=== PATIENT | female | born 1945 | race Caucasian/White ===

== ENCOUNTER 2021-05-21 14:48 | Inpatient (IN) | payer OTHER ==
[~2021-05-21] VITALS: Ht 152.4 cm; Wt 49.4 kg
--- NOTE | ~2021-05-21 | EMS ---
[facility] [address] [place] [address] EMS Patient Care Report Name: MONICA FERNANDEZ Room #: 170-7 ADM IN M.R.#: [id number] Admission: 05/21/21 Attend Phys: Krystle Cordon Discharge: Date of : 47 Report #: [id number] THIS REPORT FOR: //name// Report Transmitted: 05/21/2021 20:27 EMS Care Summary [facility] MED-ACT Incident [id number] @ 05/21/2021 14:17 Incident Location [address] [place] [address] Patient MONICA FERNANDEZ Female, 75 Years 1945 Patient Address [address] [place] [address] Patient Allergies No known allergies, Chief Complaint Right sided weakness Disposition Transported No Lights/Pioneer Dispatch Reason Stroke/CVA Transported To [facility] Narrative [id number] found the pt lying in bed on her right side being attended to by Adela FITZPATRICK. Report from [facility] was that the pt was last known normal last night around 20:11. Today daughter was on the phone and stated that the pt was having slurred speech. D reported that the pt was having right sided weakness and was unable to squeeze with her right hand. The pt was unable to communicate with EMS verbally, and did have weakness to the right sided education reporter. The pt would follow some basic commands. When the pt rolled to her back, EMS noted that the pt was looking up and to the left. The pt wouldn't track EMS. LFD also reported that the pt has been having some diarrhea recently, and the pt's [facility] [address] [place] [address] EMS Patient Care Report Name: MONICA FERNANDEZ Room #: 170-7 ADM IN M.R.#: [id number] Admission: 05/21/21 Attend Phys: Krystle Cordon Discharge: Date of : 47 Report #: [id number] clothes were noted to have some feces on them. There were no report of chest pain, shortness of breath, headaches, blurred vision, nausea/vomiting, abdominal pain, recent illness, or recent trauma. The pt was transported to [facility] with 2 paramedics at care. The pt condition remained unchanged en route. The pt was transferred to the CT scanner via a sheet drag from EMS cot and report given to ED RN. Initial Vitals @14:40P: 85,VT Suspected: false @14:38P: 90,R: 12, @PTAP: 96,R: 12,BP: 136/85,Glucose: 111,SpO2: 96, @14:47P: 81,R: 12,BP: 127/81,Temp: 97.6F,SpO2: 93, @14:43P: 83,R: 12,BP: 110/65,GCS: 11,SpO2: 95,Revised Trauma: 11, Assessments @14:29MENTAL:Person Oriented,Time Oriented,Place Oriented,Event Oriented,SKIN:HEENT:Head/Face: Facial Droop,Eyes: No Abnormalities,Neck/Airway: No Abnormalities,LUNG SOUNDS:General: No Abnormalities,ABDOMEN:General: No Abnormalities,PELVIS//GI:EXTREMITIES:Right Arm: Weakness,Left Arm: No Abnormalities,PULSE:NEURO:Facial Droop,Weakness Right-Sided, Impression Stroke Procedures @14:4012-Lead ECGResponse: UnchangedSucceeded@14:37Saline Lock 10cc (18 ga) Site: Antecubital-RightResponse: UnchangedSucceeded@14:42Saline Lock 10cc (20 ga) Site: Antecubital-LeftResponse: UnchangedSucceeded Timeline 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 DRIVER,BP: 136/85 M,PULSE: 96,RR: 12 R,SPO2: 96 Ox,ETCO2: ,B,PAIN: ,GCS: , 14:15,Call Received 14:15,Psap Call 14:17,Dispatched 14:18,En Route 14:27,On Scene 14:29,At Patient 14:37,Saline Lock 10cc 18 ga Site: Antecubital-Right,Response: UnchangedSucceeded, 14:38,BP: / M,PULSE: 90,RR: 12 R,SPO2: Ox,ETCO2: ,BG: ,PAIN: ,GCS: , 14:38,Depart Scene 14:40,12-Lead ECG,Response: UnchangedSucceeded, 14:40,BP: / M,PULSE: 85,RR: R,SPO2: Ox,ETCO2: ,BG: ,PAIN: ,GCS: , 14:42,Saline Lock 10cc 20 ga Site: Antecubital-Left,Response: UnchangedSucceeded, [facility] [address] [place] [address] EMS Patient Care Report Name: MONICA FERNANDEZ Room #: 170-7 ADM IN M.R.#: [id number] Admission: 05/21/21 Attend Phys: Krystle Cordon Discharge: Date of : 47 Report #: [id number] 14:43,BP: 110/65 M,PULSE: 83,RR: 12 R,SPO2: 95 Ox,ETCO2: ,BG: ,PAIN: ,GCS: 11, 14:46,At Destination 14:47,BP: 127/81 M,PULSE: 81,RR: 12 R,SPO2: 93 Ox,ETCO2: ,BG: ,PAIN: ,GCS: , 15:11,Call Closed Disclaimer v1.1 Copyright 2020 [employer] This EMS Care Summary contains data elements from the applicable legal record (which may be displayed differently). It is designed to provide pertinent information for the following purposes: continuity of care, clinical quality, and state data reporting. The complete legal record is available to ED staff and administrators of the receiving hospital in [employer]'s Patient Tracker. All data is provided "as is."
--- NOTE | ~2021-05-21 | HC ---
[facility] [place] [address] CONSULTATION Name: MONICA FERNANDEZ Room #: 170-7 ADM IN M.R.#: [id number] Admission: 05/21/21 Attend Phys: Krystle Cordon Discharge: Date of : 47 Report #: [id number] THIS REPORT FOR: cc: FAM - Family physician unknown FAM - Family physician unknown David Bruno MD ~ DATE OF SERVICE: 05/21/2021 HISTORY OF PRESENT ILLNESS: This is a 75-year-old female patient who was evaluated by me for stroke. I talked to nurse practitioners who was covering for the hospitalist and she provided some history. The patient's daughter is there, she provided some history. The patient is unable to provide any history because she has no speech output. Daughter lives in [place], but is in touch with the patient on a regular basis. The patient was functional until yesterday. Yesterday was the last time the patient was seen well. The daughter did send a text to the mother last night and she did not respond, but that is not unusual. Today, she called the mother, mother picked up the phone, but was not able to talk. She flew from [place] and brought the patient to Emergency Room. In the Emergency Room, first she was seen by Emergency Room doctor and subsequently, she was seen by hospitalist. First time, I was called about this consult by hospitalist nurse practitioner around 11:00 p.m. today. She indicated that the patient was worse. I talked to the daughter and she indicated that the patient was aphasic and right hemiplegic. The patient was sleeping and was having maybe some respiratory difficulties and SVT that time. REVIEW OF SYSTEMS: Indicated the patient had a breast cancer. She received chemotherapy. Her ejection fraction was low and she has mitral regurgitation as I understand from the daughter. She does have a history of hypertension and hypothyroidism, but still she was able to function reasonably well except for this breast cancer which she is dealing with in the last few years. 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 It appeared to be the left middle cerebral artery distribution because face and right upper extremity involved and the right lower extremity does not appear to be that much involved. It is difficult to tell how much she has deteriorated and how much she is exhausted. I talked to the nurse practitioner and my recommendation was followin. We should repeat the CT today and see if there is any hemorrhagic conversion or there is more edema compared to the last time. 2. We should give her an aspirin suppository. 3. If her blood pressure is running low and that may be aggravating her ischemia and I will talk to her and I think we should give her some fluid to bump up her blood pressure. [facility] [address] [place] [address] CONSULTATION Name: MONICA FERNANDEZ Room #: 170-7 ADM IN M.R.#: [id number] Admission: 05/21/21 Attend Phys: Krystle Cordon Discharge: Date of : 47 Report #: [id number] 4. I discussed the prognosis in this patient, especially the quality of the life do become poor with aphasia and she has made her no intubation, but to everything else and that appeared to be a very reasonable approach in this patient. She will need an echocardiogram and we will do that tomorrow. I think we will also proceed with MRI tomorrow, probably with and without contrast. All of it was discussed with nurse practitioner and the patient's daughter. Thank you very much for this referral. We will follow up this patient tomorrow. By: 2313 0009 David Bruno MD /nt
[2021-05-21 14:51] VITALS: BP 119/79
--- NOTE | 2021-05-21 14:55 | NUR ---
THIS RN WITH PT AT CT. PT REMAINED STABLE IN CT AND BACK TO ED ROOM 07 PT BACK TO ROOM ED [address] AND CTA. PER EMS PT STATED LAST KNOWN WELL WAS LAST NIGHT AROUND 2000 PER DAUGHTER ON PHONE. PT STATED TO LIVE AT HOME AND THERE IS NO KNOWN HX OF PRIOR STROKE. PER EMS PT STATED TO HAVE RIGHT SIDED WEAKNESS AND HAS BEEN NONVERBAL FOR THEM. PT BG 120. PT HAS BILATERAL AC ACCESS. PT HAS NO OUTWARD INJURIES NOTED. PT VSS ON RA. PT DOES APPEAR TO BE ALERT. PT WILL SQUEEZE THIS RN'S HAND WITH HER LEFT HAND WHEN PROMPTED WITH QUESTIONS. PER ASSESSMENT PT IS STATED TO HAVE HAD COVID-19 VACCINATION, PT DENIES BEING AROUND ANYONE ILL, PT DENIES ANY PAIN, PT DENIES SOB ALTHOUGH OXYGEN WAS MAINTAINING AT 89-90% ON RA SO PT WAS PLACED 2L NC, 16F TURPIN PLACED WITH CLEAR YELLOW OUPUT NO SHIVAM ISSUES NOTED. UPON NIH ASSESSMENT PT NIH AT THIS TIME IS 19; PLEASE REFER TO NIH SCALE. PT VSS ON 2L NC, PT DOES NOT INDICATE ANY CONCERNS AT THIS TIME. PT COVERERD WITH WARM BLANKETS, CALL LIGHT IS WITHIN REACH AND ENCOURAGED TO USE, PT SQUEEZES THIS RN'S HAND WHEN ASKED IF SHE IS AWARE OF WHAT IS GOING ON. PT SQUEEZES THIS RN'S HAND STATING SHE DOES NOT HAVE ANY FURTHER QUESTIONS. THIS IS A RUNNING NOTE AND LAST DOCUMENTED AT 1820, FAMILY MEMBER AT BEDSIDE AT THIS TIME
--- NOTE | 2021-05-21 15:19 | NUR ---
DTR- ABY [phone] (OUT OF TOWN) NEIGHBOR- TIMMY BENITO [phone]
[2021-05-21 15:27] LABS: ABSOLUTE NEUTROPHILS 4.8 thou/uL (1.4-8.2); EOSINOPHILS 0.3 % (0.0-3.0); HEMATOCRIT 33.6 % (37.0-47.0); HEMOGLOBIN 11.4 gm/dL (12.0-15.0); LYMPHOCYTES 23.6 % (24.0-44.0); MCH 30.1 pg (26.0-34.0); MCHC 33.8 g/dL (28.0-37.0); MCV 89.1 fL (80.0-100.0); MONOCYTES 10.2 % (1.0-8.0); PLATELET COUNT 358 thou/uL (150-400); POLYS 64.9 % (36.0-66.0); RBC 3.77 mil/uL (4.20-5.00); RDW 14.9 % (10.5-14.5); WBC 7.4 thou/uL (4.0-11.0)
[2021-05-21 15:44] LABS: CALCIUM 8.2 mg/dL (8.5-10.1); POTASSIUM 3.5 mmol/L (3.5-5.1)
[2021-05-21 15:46] LABS: APTT 23.1 Seconds (24.5-32.8); INR 1.03; PROTIME 11.2 Seconds (10.5-12.1)
[2021-05-21 15:54] LABS: ALBUMIN 2.7 g/dL (3.4-5.0); TOTAL BILIRUBIN 0.6 mg/dL (0.2-1.0); TROPONIN-I 0.17 ng/mL (<0.06)
[2021-05-21 17:34] LABS: FOLIC ACID 7.1 ng/mL (8.6-58.9)
--- NOTE | 2021-05-21 19:07 | NUR ---
REPORT GIVEN TO TONI GRAY AT THIS TIME
[2021-05-21 22:19] VITALS: BP 106/64
[2021-05-22 00:17] LABS: CALCIUM 8.7 mg/dL (8.5-10.1); CREATININE 1.1 mg/dL (0.6-1.0); POTASSIUM 3.2 mmol/L (3.5-5.1)
[2021-05-22 00:43] LABS: BE(vivo) 6.5 mmol/L (-2 to +3); HCO3 31.1 mmol/L (22.0-26.0); PCO2 44.3 mmHg (35.0-45.0); PO2 101.5 mmHg (80.0-100.0); pH 7.464 (7.360-7.450); sO2 97.9 % (92.0-98.0)
[2021-05-22 05:10] LABS: ABSOLUTE NEUTROPHILS 3.6 thou/uL (1.4-8.2); BASOPHILS 0.4 % (0.0-2.0); EOSINOPHILS 0.4 % (0.0-3.0); HEMOGLOBIN 11.5 gm/dL (12.0-15.0); LYMPHOCYTES 30.1 % (24.0-44.0); MCH 30.4 pg (26.0-34.0); MCV 89.4 fL (80.0-100.0); MONOCYTES 9.7 % (1.0-8.0); PLATELET COUNT 331 thou/uL (150-400); POLYS 59.4 % (36.0-66.0); RDW 14.8 % (10.5-14.5); WBC 6.1 thou/uL (4.0-11.0)
[2021-05-22 05:32] LABS: CALCIUM 8.3 mg/dL (8.5-10.1); CREATININE 0.9 mg/dL (0.6-1.0); MAGNESIUM 1.9 mg/dL (1.8-2.4); POTASSIUM 3.3 mmol/L (3.5-5.1)
[2021-05-22 07:21] LABS: CHOLESTEROL 152 mg/dL (<200); HDL CHOLESTEROL 44 mg/dL (>40); LDL CHOLESTEROL 93 mg/dL (<100); TC:HDL 3.5 Ratio (Not establshd); TRIGLYCERIDE 78 mg/dL (<150); VLDL 16 mg/dL (<40)
--- NOTE | 2021-05-22 09:01 | NUR ---
SPOKE TO BO JERRY (CARDIOLOGY) AND WAS NOTIFIED OK TO GIVE PATIENT METOPROLOL AND AMNIODARONE WITH CURRENT BLOOD PRESSURE TRENDS.
--- NOTE | 2021-05-22 09:50 | EKG ---
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: PK : 1945 Requested By: Reji Villeda Order Number: [id number] MD: Scot Conrad Measurements Intervals [place] Rate: 77 P: 89 IN: 176 QRS: 51 QRSD: 129 T: 117 QT: 457 QTc: 518 Interpretive Statements Sinus rhythm Premature ventricular complexes LVH with secondary repolarization abnormality Prolonged QT interval No previous ECG available for comparison Electronically Signed On 05-22-2021 9:49:57 CDT by Scot Conrad [email or web address] <ELECTRONICALLY SIGNED> By: Scot Conrad MD, [facility] 05/22/21 0949 1544 1544 Scot Conrad MD, FACC /EPI
--- NOTE | 2021-05-22 09:54 | EKG ---
[place] [address] [facility] [place] [address] ELECTROCARDIOGRAM REPORT Name: MONICA FERNNADEZ Room #: 170-7 ADM IN M.R.#: [id number] Admission: 05/21/21 Attend Phys: Krystle Cordon Discharge: Date of : 47 Report #: [id number] [facility] ED Test Date: 2021-05-21 Test Time: 22:07:29 Pat Name: MONICA FERNANDEZ Department: Room: 170 Gender: F Tack Picker: drea : 1945 Requested By: Ashleigh Avalos Order Number: [id number] MD: Scot Conrad Measurements Intervals [place] Rate: 80 P: 96 [place]: 160 QRS: 59 QRSD: 102 T: 119 QT: 410 QTc: 473 Interpretive Statements Sinus rhythm Atrial premature complexes LVH with secondary repolarization abnormality Compared to ECG 05/21/2021 15:44:12 Premature ventricular complexes are no longer present present Electronically Signed On 05-22-2021 9:54:41 CDT by Scot Conrad [email or web address] <ELECTRONICALLY SIGNED> By: Scot Conrad MD, [facility] 05/22/21 0954 06 06 Scot Conrad MD, [facility] /EPI
--- NOTE | 2021-05-22 10:51 | NUR ---
DAUGHTER (ABY AGUERO) [phone]
--- NOTE | 2021-05-22 12:37 | 2DMMODE ---
[facility] [place] [address] 2 D/M-MODE ECHOCARDIOGRAM Name: MONICA FERNANDEZ Room #: 170-7 ADM IN M.R.#: [id number] Admission: 05/21/21 Attend Phys: Krystle Cordon Discharge: Date of : 47 Report #: [id number] THIS REPORT FOR: cc: FAM - Family physician unknown FAM - Family physician unknown Scot Conrad MD [facility] ~ APPROVED REPORT Study performed: 05/22/2021 11:24:17 EXAM: Comprehensive 2D, Doppler, and color-flow Echocardiogram Patient Location: ER Room #: 7 Status: routine BSA: 1.54 HR: 67 bpm BP: 125/86 mmHg Rhythm: NSR Other Information Study Quality: Adequate Indications CVA/TIA Elevated Troponin Hypertension/HDD 2D Dimensions IVSd: 9.45 (7-11mm) LVOT Diam: 18.35 (18-24mm) LVDd: 56.20 mm PWd: 10.26 (7-11mm) Ascending Ao: 33.15 (22-36mm) LVDs: 50.47 (25-40mm) Left Atrium: 34.13 (27-40mm) Aortic Root: 31.36 mm Volumes Left Atrial Volume (Systole) Single Plane 4CH: 16.91 mL Single Plane 2CH: 65.56 mL Biplane LA Volume: 52.00 mL LA ESV Index: 34.00 mL/m2 Aortic Valve AoV Peak [place].: 0.83 m/s AO Peak Gr.: 2.77 mmHg LVOT Max P.72 mmHg LVOT Max V: 0.42 m/s [facility] [place] [address] [place] [address] 2 D/M-MODE ECHOCARDIOGRAM Name: MONICA FERNANDEZ Room #: 170-7 ADM IN ..#: [id number] Admission: 05/21/21 Attend Phys: Krystle Riddle Discharge: Date of : 47 Report #: [id number] LAMAR Vmax: 1.35 cm2 Mitral Valve E/A Ratio: 2.0 MV Decel. Time: 113.58 ms MV E Max Kingston.: 0.98 m/s MV A Kingston.: 0.48 m/s MV PHT: 32.94 ms IVRT: 78.43 ms Pulmonary Valve PV Peak [place].: 0.56 m/s PV Peak Gr.: 1.25 mmHg CO End Vmax: 1.22 m/s Tricuspid Valve TR Peak [place].: 2.94 m/s RAP Estimate: 15.00 mmHg TR Peak Gr.: 34.63 mmHg RVSP: 50.00 mmHg Left Ventricle Left ventricle is dilated. There is global hypokinesis of the left ventricle. There is normal left ventricular wall thickness. Left ventricular systolic function is severely decreased. LVEF 25%. Severe diastolic dysfunction Right Ventricle The right ventricle is normal size. Right ventricle is moderately hypokinetic. Atria Left atrium is borderline dilated. The right atrium size is normal. Aortic Valve The aortic valve is normal in structure. No aortic regurgitation is present. There is no aortic valvular stenosis. Mitral Valve The mitral valve is normal in structure. Moderate to severe mitral regurgitation No evidence of mitral valve stenosis. Tricuspid Valve The tricuspid valve is normal in structure. Mild to moderate tricuspid regurgitation. Pulmonary artery pressure of 40 mmHg. Pulmonic Valve [facility] [place] [address] [place] [address] 2 D/M-MODE ECHOCARDIOGRAM Name: MONICA FERNANDEZ Room #: 170-7 ADM IN M.R.#: [id number] Admission: 05/21/21 Attend Phys: Krystle Riddle Discharge: Date of : 47 Report #: [id number] The pulmonary valve is normal in structure. Trace to mild pulmonic regurgitation. Great Vessels The aortic root is normal in size. IVC is dilated and collapses <50% with inspiration. Pericardium There is no pericardial effusion. There is no pleural effusion. <Conclusion> Left ventricular systolic function is severely decreased. There is global hypokinesis of the left ventricle. LVEF 25%. Severe diastolic dysfunction Left atrium is borderline dilated. The aortic valve is normal in structure. No aortic regurgitation or stenosis. The mitral valve is normal in structure. Moderate to severe mitral regurgitation Pulmonary artery pressure of 40 mmHg. There is no pericardial effusion. <ELECTRONICALLY SIGNED> By: Scot Conrad MD, [facility] 05/22/21 1237 1237 1237 Scot Conrad MD, [facility] /INF
[2021-05-22 14:17] VITALS: BP 96/62
[2021-05-22 14:41] VITALS: BP 110/71
--- NOTE | 2021-05-22 14:45 | NUR ---
VERIFIED ROOM ASSIGNMENT AND LEVEL OF CARE STATUS WITH CENTER REP, WAS NO TIFIED THAT ROOM [address] YOUNG.
[2021-05-22 15:15] VITALS: BP 120/78
--- NOTE | 2021-05-22 20:19 | NUR ---
ADMITTED THIS PATIENT FROM THE EMERGENCY AT 1505H, ON NASAL CANNULA AT 6LPM, MAITAING SATURATION MORE THAN 95%.NOT IN PAIN OR DISTRESS.PATIENT HAS EXPRESSIVE APHASIA, ADMISSION INFORMATIONS WERE GIVEN BY HER BESTFRIEND WHO CAME WITH HER FROM THE EMERGENCY.CONFIRMED WITH DR. MACEDO PRIOR TO GIVING THE DUE AMIODARONE AND IV METOPROLOL SINCE THE LAST BLOOD PRESSURE WAS 116/79 AND HR WAS 76 AND PATIENT IS ALSO ON SINUS RYTHM, PER DR. MACEDO BOTH STILL NEEDS TO BE GIVEN.INFORMED DR. FERGUSON THAT PER MANAGEMENT CONSULTANT, PATIENT NEEDS TO BE SEDATED PRIOR TO MRI SINCE PATIENT IS HAVING CLAUSTROPHOBIA, PER DR. FERGUSON, WE CAN JUST CANCEL THE MRI IT IS NOT NEEDED NOW.ALL NEEDS ATTENDED.HANDED OVER TO REAL ESTATE DEVELOPER FOR FURTHER CARE.
[2021-05-22 21:06] VITALS: BP 110/78
[2021-05-23] VITALS (7 sets, daily range): BP systolic 111–1221; BP diastolic 76–85
[2021-05-23 05:01] LABS: ALBUMIN 2.8 g/dL (3.4-5.0); CALCIUM 8.2 mg/dL (8.5-10.1); PHOSPHORUS 3.1 mg/dL (2.6-4.7); POTASSIUM 4.1 mmol/L (3.5-5.1); TROPONIN-I 0.21 ng/mL (<0.06)
--- NOTE | 2021-05-23 07:52 | NUR ---
PT BEEN RESTING IN NO ACUTE DISTRESS.PT S/P CVA W/RIGHT SIDED WEAKNESS AND EXPRESSIVE APHASIA.PT FOLLOWS COMMANDS APPROPRIATELY WHEN PROMOTED AND USES GESTURE/NODDING AND SQUEEZING HAND.PT HAD ACUTE EPISODES OF SHORTNESS OF BREATH THAT WAS RELIEF BY NEB TX AND O2 PNC.CURRENTLY AT 3LITERS PNC,SATS ADEQUATE.LCLR,NO WHEEZING OR COUGH.NO EDEMA.SHE ALOS COMPLAINED OF NAUSEA W/O VOMITING THAT WAS CONTROLLED WITH ZOFRAN PER ORDERS. TURPIN DD,URINE OUTPUT INADEQUATE< 200ML THIS SHIFT,BRASSWIND INSTRUMENT REPAIRER WAS NOTIFIED,250CC OF NS BOLUS WAS GIVEN W/O IMPROVEMENT.NPO PENDING ST EVALUATION.MRI WAS CANCELLED PER DAY RN REPORT.ASSESSMENT COMPLETED DOCUMENTED.WILL CONT TO MONITOR.SHAGGY,PT DAUGHTER WILL BE HERE TODAY.
--- NOTE | 2021-05-23 10:30 | EKG ---
[address] [place] [address] ELECTROCARDIOGRAM REPORT Name: MONICA FERNANDEZ Room #: 210-P ADM IN M.R.#: [id number] Admission: 05/21/21 Attend Phys: Krystle Cordon Discharge: Date of : 47 Report #: [id number] [facility] ED Test Date: 2021-05-22 Test Time: 07:11:23 Pat Name: MONICA FERNANDEZ Department: Room: 210 Gender: F Trench Trimmer Fine: drea : 1945 Requested By: Krystle Cordon Order Number: [id number] MD: Scot Conrad Measurements Intervals [place] Rate: 123 P: DC: QRS: 47 QRSD: 103 T: 73 QT: 398 QTc: 570 Interpretive Statements Supraventricular tachycardia Right ventricular conduction delay Prolonged QT interval Compared to ECG 05/22/2021 07:06:30 Premature ventricular complexes no longer present Electronically Signed On 05-23-2021 10:30:29 CDT by Scot Conrad [email or web address] <ELECTRONICALLY SIGNED> By: Scot Conrad MD, [facility] 05/23/21 1030 0 Scot Conrad MD, FACC /EPI
--- NOTE | 2021-05-23 10:30 | EKG ---
[address] [place] [address] ELECTROCARDIOGRAM REPORT Name: MONICA FERNANDEZ Room #: 210-P ADM IN M.R.#: [id number] Admission: 05/21/21 Attend Phys: Krystle Cordon Discharge: Date of : 47 Report #: [id number] [facility] ED Test Date: 2021-05-22 Test Time: 07:06:30 Pat Name: MONICA FERNANDEZ Department: Room: 210 Gender: F Console Manager: drea : 1945 Requested By: Krystle Cordon Order Number: [id number] MD: Scot Conrad Measurements Intervals [place] Rate: 121 P: 0 [place]: 228 QRS: 66 QRSD: 99 T: 83 QT: 380 QTc: 540 Interpretive Statements Supraventricular tachycardia Occasional premature ventricular complexes Compared to ECG 05/21/2021 22:07:29 Ventricular premature complex(es) now present PSVT has replaced sinus rhythm Electronically Signed On 05-23-2021 10:30:05 CDT by Scot Conrad [email or web address] <ELECTRONICALLY SIGNED> By: Scot Conrad MD, [facility] 05/23/21 1030 5 5 Scot Conrad MD, [facility] /EPI
--- NOTE | 2021-05-23 10:33 | EKG ---
[address] [address] [place] [address] ELECTROCARDIOGRAM REPORT Name: MONICA FERNANDEZ Room #: 210-P ADM IN M.R.#: [id number] Admission: 05/21/21 Attend Phys: Krystle Cordon Discharge: Date of : 47 Report #: [id number] [facility] ED Test Date: 2021-05-22 Test Time: 07:12:50 Pat Name: MONICA FERNANDEZ Department: Room: 210 Gender: F Document Restorer: drea : 1945 Requested By: Krystle Cordon Order Number: [id number] MD: Scot Conrad Measurements Intervals [place] Rate: 71 P: 85 [place]: 169 QRS: 33 QRSD: 102 T: 74 QT: 540 QTc: 587 Interpretive Statements Sinus rhythm Occasional atrial premature complexes Probable left ventricular hypertrophy Nonspecific T abnormalities, lateral leads Prolonged QT interval Compared to ECG 05/22/2021 07:11:23 PSVT is no longer present Electronically Signed On 05-23-2021 10:33:29 CDT by Scot Conrad [email or web address] <ELECTRONICALLY SIGNED> By: Scot Conrad MD, [facility] 05/23/21 1033 1 1 Scot Conrad MD, [facility] /EPI
--- NOTE | 2021-05-23 10:35 | EKG ---
[facility] [place] [address] ELECTROCARDIOGRAM REPORT Name: MONICA FERNANDEZ Room #: 210-P ADM IN M.R.#: [id number] Admission: 05/21/21 Attend Phys: Krystle Cordon Discharge: Date of : 47 Report #: [id number] [facility] ED Test Date: 2021-05-22 Test Time: 07:14:16 Pat Name: MONICA FERNANDEZ Department: Room: 210 Gender: F Agency Trainer: drea : 1945 Requested By: Krystle Cordon Order Number: [id number] MD: Scot Conrad Measurements Intervals [place] Rate: 118 P: 252 LA: 188 QRS: 69 QRSD: 97 T: 84 QT: 361 QTc: 506 Interpretive Statements Supraventricular tachycardia Consider left atrial enlargement RSR' in V1 or V2, right VCD Probable left ventricular hypertrophy Prolonged QT interval Compared to ECG 05/22/2021 07:12:50 PSVT has replaced sinus rhythm Electronically Signed On 05-23-2021 10:35:12 CDT by Scot Conrad [email or web address] <ELECTRONICALLY SIGNED> By: Scot Conrad MD, [facility] 05/23/21 1035 3 Scot Conrad MD, [facility] /EPI
--- NOTE | 2021-05-23 10:54 | EKG ---
[address] [address] [place] [address] ELECTROCARDIOGRAM REPORT Name: MONICA FERNANDEZ Room #: 210-P ADM IN M.R.#: [id number] Admission: 05/21/21 Attend Phys: Krystle Cordon Discharge: Date of : 47 Report #: [id number] [facility] Test Date: 2021-05-23 Test Time: 08:23:00 Pat Name: MONICA FERNANDEZ Department: Room: 210 P Gender: F Missile Mechanic: DIANA : 1945 Requested By: Scot Conrad Order Number: [id number] MD: Scot Conrad Measurements Intervals [place] Rate: 73 P: 82 [place]: 163 QRS: 53 QRSD: 75 T: 61 QT: 451 QTc: 497 Interpretive Statements Sinus rhythm Paired ventricular premature complexes RSR' in V1 or V2, probably normal variant Borderline T wave abnormalities Borderline prolonged QT interval Compared to ECG 05/22/2021 07:14:16 Ventricular premature complex(es) now present Supraventricular tachycardia is no longer present Electronically Signed On 05-23-2021 10:54:29 CDT by Scot Conrad [email or web address] <ELECTRONICALLY SIGNED> By: Scot Conrad MD, [facility] 05/23/21 1054 0823 0823 Scot Conrad MD, [facility] /EPI
[2021-05-24 03:07] VITALS: BP 122/76
[2021-05-24 03:30] LABS: ALBUMIN 2.8 g/dL (3.4-5.0); CALCIUM 7.9 mg/dL (8.5-10.1); PHOSPHORUS 2.6 mg/dL (2.5-4.9)
[2021-05-24 07:26] VITALS: BP 114/63
--- NOTE | 2021-05-24 07:49 | NUR ---
ASSUMED CARE OF PT AT 1900, PT ALERT AND NON VERBAL, DAUGHER AT BEDSIDE. ASSESSMENT COMPLETED NOTED. NIH CHARTED NOTED. PT REMAINS ON 3L NC, AND HAS BOUTS OF ANXIETY THAT IS RESOLVED WITH MEDICATION. PT WAS ABLE TO SLEEP THE MAJORITY OF THE NOC. PT K+ 3.0, POTASSIUM PROTOCOL INITIATED. WILL CONTINUE TO WORK TOWARD POC
[2021-05-24 11:38] VITALS: BP 112/72
[2021-05-24 17:06] VITALS: BP 110/62
[2021-05-24 20:00] VITALS: BP 106/68
[2021-05-25 04:00] VITALS: BP 106/66
[2021-05-25 09:30] VITALS: BP 123/78
--- NOTE | 2021-05-25 09:37 | NUR ---
Recommend continue ordered tube feed of jevity 1.5 at goal of 35ml/hr with 200ml water flush every 6hr. Consider dc IVF. Folate is needing replacement.
[2021-05-25 12:50] VITALS: BP 95/49
[2021-05-25 13:19] LABS: CALCIUM 8.5 mg/dL (8.5-10.1); POTASSIUM 3.9 mmol/L (3.5-5.1)
--- NOTE | 2021-05-25 15:18 | NUR ---
ASSESSMENT: CM REVIEWED CHART. PT WAS ADMITTED DUE TO [facility]. PT WAS TOTALLY INDEPENDENT PRIOR TO ADMISSION. PT LIVED AT HOME BY HERSELF AND WAS PLANNING ON MOVING THIS COMING WEEK TO [place] TO LIVE WITH HER DAUGHTER AND HER FAMILY (GRANDCHILDREN) BUT ENDED UP IN THE HOSPITAL. PT WAS INDEPENDENT WITH ADLS AND AMBULATION PRIOR TO ADMISSION AND DID NOT REQUIRE ANY DME. DAUGHTER STATING THAT THEY PREFER THAT PATIENT GOES TO [facility] INPATIENT REH[facility]IL[facility]ATION. CM FAXED REFERRAL AND SPOKE WITH MONICA IN ADMISSIONS WHO IS COVERING FOR [facility] AND REPORTS SHE IS STILL REVIEWING REFERRAL. CM UPDATED PATIENTS DAUGHTER ABY. MARGARET REPORTS PLANS ARE FOR PATIENT TO GO TO ACUTE REHAB AND THEM MOVE TO [place] WITH THEM SO THEY ARE THERE TO SUPPORT HER. CM WILL AWAIT FURTHER INPUT FROM [facility].
[2021-05-25 16:00] VITALS: BP 102/66
[2021-05-25 20:00] VITALS: BP 115/72
[2021-05-26 03:57] LABS: HEMATOCRIT 35.9 % (37.0-47.0); HEMOGLOBIN 11.9 gm/dL (12.0-15.0); MCH 29.7 pg (26.0-34.0); MCHC 33.3 g/dL (28.0-37.0); MCV 89.2 fL (80.0-100.0); RBC 4.02 mil/uL (4.20-5.00); RDW 15.2 % (10.5-14.5); WBC 14.4 thou/uL (4.0-11.0)
[2021-05-26 04:00] VITALS: BP 125/61
[2021-05-26 04:30] LABS: CALCIUM 8.5 mg/dL (8.5-10.1); CREATININE 0.9 mg/dL (0.6-1.0); POTASSIUM 4.4 mmol/L (3.5-5.1)
[2021-05-26 08:00] VITALS: BP 118/76
[2021-05-26 10:25] LABS: URINE BLOOD 3+ (Negative); URINE CLARITY CLOUDY; URINE COLOR YELLOW; URINE GLUCOSE-RANDOM* NEGATIVE (Negative); URINE KETONES TRACE (Negative); URINE PROTEIN (DIPSTICK) 1+ (Negative); URINE SPECIFIC GRAVITY 1.015 (1.005-1.035)
[2021-05-26 10:33] LABS: ICTOTEST (BILI CONFIRMATORY) Negative (Negative); URINE BILIRUBIN NEGATIVE (Negative); URINE LEUKOCYTES-REFLEX 2+ (Negative); URINE NITRITE-REFLEX POSITIVE (Negative)
[2021-05-26 11:10] LABS: AMORPHOUS URATES Few /LPF (None Seen); BACTERIA-REFLEX >30 Many /HPF (None Seen); CASTS None Seen /LPF (None Seen); SQUAMOUS None Seen /LPF (0-3); URINE WBC-REFLEX >25 Many /HPF (0-5)
[2021-05-26 12:00] VITALS: BP 87/50
--- NOTE | 2021-05-26 14:28 | NUR ---
ON-GOING ASSESSMENT: CM REVIEWED CHART AND SPOKE WITH ATTENDING. PT WAS FEBRILE THIS AM AND CONCERNS FOR POSSIBLE ASPIRATION. VIDEO SWALLOW WAS ORDERED FOR PATIENT AND RECOMMENDING POSSIBLE PEG PLACEMENT. GI HAS BEEN CONSULTED TO EVAL FOR PEG TUBE. CM SPOKE WITH PATIENTS DAUGHTER WHO WAS IN THE WAITING ROOM TODAY TO DISCUSS. SHE REPORTS SHE WILL SEE WHAT IS RECOMMENDED BUT THINKS PT WOULD BENEFIT FROM PEG DUE TO NUTIRITIONAL SUPPORT IT WOULD PROVIDE AND STILL WANTS PATIENT TO GO TO [facility] HER TOP CHOICE. PT DOES NOT WANT PT TO GO TO [facility]N ACUTE REHAB. CM UPDATED [facility] SOUZA FROM [facility] AND NOTIFIED HER PT MAY NEED PEG PLACEMENT AND AWAITING GI EVAL. CM WILL CONTINUE TO FOLLOW TO ASSIST NEEDED.
[2021-05-26 16:00] VITALS: BP 102/58
[2021-05-26 20:12] VITALS: BP 99/66
[2021-05-27 00:51] VITALS: BP 98/60
[2021-05-27 03:27] LABS: HEMATOCRIT 30.9 % (37.0-47.0); HEMOGLOBIN 10.4 gm/dL (12.0-15.0); MCH 30.2 pg (26.0-34.0); MCHC 33.6 g/dL (28.0-37.0); MCV 89.7 fL (80.0-100.0); RBC 3.44 mil/uL (4.20-5.00); RDW 15.6 % (10.5-14.5)
[2021-05-27 04:04] LABS: CALCIUM 7.8 mg/dL (8.5-10.1); CREATININE 0.8 mg/dL (0.6-1.0)
[2021-05-27 04:34] VITALS: BP 92/49
--- NOTE | 2021-05-27 07:48 | NUR ---
ASSUMED CARE OF PT AT 1900, PT IS ALERT AND NON VERBAL, BUT UNDERSTANDS ALL COMMANDS. PT REMAINS ON 2L NC TOLERATING WELL, TURPIN IN PLACE AND PATENT. DOBHOFF AT 60 WITH TF RUNNING ORDERED. ASSESSMENT COMPLETED NOTED, PT DENIES PAIN. AT 0400 BP WAS 92/49 WITH MAP OF 60, [employer]IC NOTIFIED, ORDERS RECIEVED AND INITIATED. WILL CONTINUE TO WORK TOWARDS PT'S POC.
[2021-05-27 07:50] VITALS: BP 107/63
[2021-05-27 12:00] VITALS: BP 95/56
--- NOTE | 2021-05-27 15:18 | NUR ---
ON-GOING ASSESSMENT: CM REVIEWED CHART. PLANS ARE FOR PATIENT TO GET PEG TUBE TOMORROW. ONCE PT IS ABLE TO START TUBE FEEDS SHE MUST BE AT HER GOAL RATE AND TOLERATING BEFORE [facility] CAN ACCEPT HER. ONCE SHE IS TOLERATING TUBE FEEDS AT GOAL RATE THEY CAN MEDICALLY ACCEPT. CM SENT UPDATED CLINICAL AND NEGATIVE COVID TEST TO [facility]MISS[facility] ABD DISCUSSED. GRAZYNA ALSO SPOKE WITH PATIENTS DAUGHTER ABY TO UPDATE. GRAZYNA WILL CONTINUE TO FOLLOW.
--- NOTE | 2021-05-27 16:52 | NUR ---
FAXED CLINICAL UPDATES AND NEGATIVE COVID RESULT (05/21/21) TO [facility]. WILL CONFIRM WITH [facility] THAT THEY HAVE RECEIVED. [facility] P [phone]; FAX [phone]
[2021-05-27 17:18] VITALS: BP 97/51
--- NOTE | 2021-05-27 19:23 | NUR ---
ASSUMED CARE SHIFT CHANGE. ASSESSMENTS CHARTED.VSS. PM BP MED HELD PER PARAMETER ORDERS. PT ALERT. ANSWERS YES/NO QUESTIONS. UNABLE TO SPEAK. DAUGHTER AND SON AT BEDSIDE THROUGHOUT SHIFT. TUBE FEEDS CONTINUE. PUREED DIET PER ORDERS, PT JON WELL. UP WITH PHYS THERAPY AND OT JON WELL. TURNS. PT PROGRESSING WELL TOWARD GOALS. PLAN FOR REHAB ONCE MEDICALLY STABLE. DENIES PAIN/CP/SOB. REPORT PASSED TO SALMA RN.
[2021-05-27 20:15] VITALS: BP 108/67; BP 119/85
[2021-05-28 00:55] VITALS: BP 95/53
[2021-05-28 02:03] VITALS: BP 95/53
[2021-05-28 04:45] VITALS: BP 104/55
--- NOTE | 2021-05-28 07:47 | NUR ---
assumed pt care at 1900, pt is awake, daughter at bedside, pt remains non-verbal, able to follow commands, nodes to yes or no questions, pt in good spirits tonight, assessmensts as charted, meds given as per dec, remains npo for peg tube placement today, no needs at this time, passed on report to day nurse
[2021-05-28 07:50] VITALS: BP 103/63; BP 125/82
[2021-05-28 11:35] VITALS: BP 99/65
--- NOTE | 2021-05-28 12:40 | NUR ---
Patient's daughter at bedside at the time patient picked up to go to GI lab for PEG placement. Patient NPO since midnight. VSS.
--- NOTE | 2021-05-28 16:35 | NUR ---
ON-GOING ASSESSMENT: CM REVIEWED CHART. PT IS TO HAVE PEG TUBE PLACED TODAY. CM FAXED UPDATED NOTES TO [facility]. CM WILL CONTINUE TO FOLLOW TO ASSIST NEEDED. [facility] CAN ACCEPT PATIENT ONCE SHE IS TOLERATING HER GOAL FEEDS.
[2021-05-28 18:25] VITALS: BP 103/67
--- NOTE | 2021-05-28 18:42 | NUR ---
Patient returned from PEG placement, alert and following commands. VSS. Family at bedside. Updated on patient condition. D5W restarted. Patient denies pain at this time
[2021-05-29 00:32] VITALS: BP 100/60
[2021-05-29 04:47] VITALS: BP 101/62
--- NOTE | 2021-05-29 05:24 | NUR ---
assumed pt care at 1900, awake, alert, follow commands, c/o pain, tyl given x2 with partial relief, sr on tele, meds given as per dec, repositioned as needed, frequent rounding, calls appropriately for needs, peg tube site intact, will pass on report
[2021-05-29 08:10] VITALS: BP 97/63
--- NOTE | 2021-05-29 11:04 | NUR ---
Recommend jevity 1.5 at 35ml/hr and 200ml water flushes every 6hr. Folic acid needs replacement
[2021-05-29 11:25] VITALS: BP 104/65
--- NOTE | 2021-05-29 13:53 | NUR ---
VAT CONSULTED FOR PIV PLACEMENT. ATTEMPT LEFT FOREARM PIV, X1, WITHOUT SUCCESS. ASSESSED BILATERAL ARMS WITH US. VESSELS EXTREMELY SMALL, INCLUDING LEFT UPPER ARM. LEFT UPPER BRACHIAL ML PLACED, TRIMMED 15CM WITH 0CM EXTERNAL, PER VASCULAR ACCESS POLICY. FLUSHES BRISKLY AND RETURNS BLOOD. RELEASED FOR USE.
--- NOTE | 2021-05-29 16:20 | NUR ---
ON-GOING ASSESSMENT: CM REVIEWED CHART AND SPOKE WITH ATTENDING. PT IS SLOWLY PROGRESSING TOWARDS DISCHARGE GOALS. PT HAD PEG TUBE PLACED LATE YESTERDAY. CM FAXED UDPATED CLINICAL FROM PEG PLACEMENT WELL UPDATED PROGRESS NOTES /[employer] NOTES/LABS. GRAZYNA SPOKE WITH HARLEY OLEA AT [facility] WHO REPORTS THEY CAN ONLY ACCEPT PATIENT IF PATIENT IS ABLE TO TOLERATE TUBE FEEDS AT HER GOAL. CM NOTIFIED ATTENDING AND LIASON FROM [facility] STATING THEY MAY BE ABLE TO TAKE ON TUESDAY BUT WOULD NEED TO TALK WITH BEDSIDE RN FIRST WELL GET UPDATED CLINICAL TO THEM:[phone] AND CONTACT [facility] ONCE PT IS MEDICALLY STABLE FOR DISCHARGE AT [phone] TO DETERMINE IF THEY CAN ACCEPT ON THAT DATE. MAIN NUMBER FOR [facility]:[phone] KEEP PATIENTS DAUGHTER ABY UPDATED AT [phone].
[2021-05-29 16:55] VITALS: BP 100/67
--- NOTE | 2021-05-29 17:57 | NUR ---
ASSUMED CARE SHIFT CHANGE.VSS BP LOW THIS AM MEDS HELD. BP STABLE NOW. UP WITH PHYS THERAPY JON WELL. JON TUBE FEEDS NO RESIDUALS. PEG FUNCTIONING WELL. ORDER FOR TF TO RUN NOC AT GOAL. PLAN FOR DC IN AM TO REHAB. COMT POC. WILL PASS REPORT TO NOC RN.
[2021-05-29 20:49] VITALS: BP 103/62
[2021-05-30 05:28] VITALS: BP 104/64
[2021-05-30 07:40] VITALS: BP 111/74
--- NOTE | 2021-05-30 07:53 | NUR ---
SLEPT MOST OF SHIFT. TYLENOL AND BENADRYL GIVEN NEEDED. TOLERATED TUBE FEEDING OVER NOC. REPOSTIONED NEEDED. CONTINUE TO ASSES AND ANSWER LIGHT QUICKLY IN PERSON DUE TO EXPRESSIVE APHASIA.
[2021-05-30 11:35] VITALS: BP 121/83
[2021-05-30] MEDS ORDERED: ELIQUIS5 MG PO (12:05)
[2021-05-30] MEDS ORDERED: PACERONE 200 M200 M1 PO (12:05)
[2021-05-30] MEDS ORDERED: LIPITOR10 MG PO (12:05)
[2021-05-30] MEDS ORDERED: CARVEDILOL3.125 MG PO (12:06)
[2021-05-30] MEDS ORDERED: ALDACTONE50 MG PO (12:06)
[2021-05-30] MEDS ORDERED: PAXIL 20 MG TAB20 M1 PO (12:06)
[2021-05-30] MEDS ORDERED: SYNTHROID50 MCG PO (12:06)
[2021-05-30] MEDS ORDERED: COZAAR 25 MG TA25 M1 PO (12:06)
[2021-05-30] MEDS ORDERED: XANAX 0.25 MG0.25 MG PO (12:07)
[2021-05-30 16:38] VITALS: BP 102/64
[2021-05-30 19:45] VITALS: BP 102/63
[2021-05-31 04:40] VITALS: BP 102/57
[2021-05-31 05:39] LABS: HEMATOCRIT 34.1 % (37.0-47.0); HEMOGLOBIN 11.6 gm/dL (12.0-15.0); MCH 30.6 pg (26.0-34.0); MCHC 34.1 g/dL (28.0-37.0); MCV 89.8 fL (80.0-100.0); RBC 3.8 mil/uL (4.20-5.00); RDW 15.4 % (10.5-14.5); WBC 6.3 thou/uL (4.0-11.0)
[2021-05-31 05:49] LABS: CALCIUM 9.1 mg/dL (8.5-10.1); CREATININE 0.9 mg/dL (0.6-1.0); POTASSIUM 4.2 mmol/L (3.5-5.1)
--- NOTE | 2021-05-31 07:27 | NUR ---
SLEPT MOST OF SHIFT. WORKING ON TALKING. ASSIST UP TO BSC NEEDED. CONTINUE TO ASSES CLOSELY. DENIES COMPLAINTS THIS AM. RESTING WITH EYES CLOSED.
[2021-05-31 07:48] VITALS: BP 98/59
[2021-05-31 11:13] VITALS: BP 109/66
[2021-05-31 15:57] VITALS: BP 99/57
[2021-05-31 20:04] VITALS: BP 106/71
[2021-06-01 04:45] VITALS: BP 100/64
[2021-06-01 08:15] VITALS: BP 96/54
--- NOTE | 2021-06-01 11:27 | NUR ---
Patient to dc to [facility] acute rehab at 1300. [facility] arranged rehab. chart copied. orders faxed. spoke with patient and dtr and alerted of dc and timefrane no further needs.
[2021-06-01 12:32] VITALS: BP 104/62
--- NOTE | 2021-06-01 13:44 | NUR ---
PT IS AXOX4, APHASIA, UNABLE TO FULLY VERBALIZE NEEDS; C/O PAIN IN LOWER BACK WHICH IS CHRONIC. VSS BP 90-100SBP, AFEBRILE, SR ON MONITOR. PT TO D/C TO [facility] THIS PM. CASE MGMT CONSULTED. PT/OT CONSULTED. PT D/C VIA WHEEL CHAIR VAN TO [facility]. CHART COPY PROVIDED. REPORT CALLED IN TO DONA AT [facility]. NO CONCERNS AT THIS TIME.
== END 2021-06-01 14:07 | DRG 64 ==
LOC: ER 14:48 → 2N 18:06 → EROBS 18:06 → 2N 05-22 14:42
PROVIDERS: Emergency Medicine; Hospitalist; Internal Medicine; Nurse Practitioner; Nurse Practitioner Adult Health; Nurse Practitioner Family; ADMIT Hospitalist; ATTEND Hospitalist
PROC: 0DH63UZ Insertion of Feeding Device into Stomach, Percutaneous Approach (ICD-10-PCS; principal; 2021-05-28)
DX: I63.89 Other cerebral infarction (principal); E43 Unspecified severe protein-calorie malnutrition; J96.00 Acute respiratory failure, unspecified whether with hypoxia or hypercapnia; I42.9 Cardiomyopathy, unspecified; I47.1 Supraventricular tachycardia; G81.91 Hemiplegia, unspecified affecting right dominant side; N39.0 Urinary tract infection, site not specified; R77.8 Other specified abnormalities of plasma proteins; R29.719 NIHSS score 19; I10 Essential (primary) hypertension; E03.9 Hypothyroidism, unspecified; I48.0 Paroxysmal atrial fibrillation; J45.909 Unspecified asthma, uncomplicated; R47.01 Aphasia; R13.10 Dysphagia, unspecified; E53.8 Deficiency of other specified B group vitamins; E87.6 Hypokalemia; H53.461 Homonymous bilateral field defects, right side; Z60.2 Problems related to living alone; Z20.822 Contact with and (suspected) exposure to COVID-19; Z68.21 Body mass index [BMI] 21.0-21.9, adult; Z85.3 Personal history of malignant neoplasm of breast; Z92.21 Personal history of antineoplastic chemotherapy
CPT/HCPCS: 10081; 62110; 62900; 70005